=== PATIENT | male | born 1945 | race Caucasian/White ===

== ENCOUNTER 2017-10-08 12:39 | Inpatient (IN) | payer MEDICARE ==
[~2017-10-08] VITALS: Ht 172.7 cm; Wt 69.1 kg
[2017-10-08] MEDS ORDERED: SODIUM CHLORIDE FLUSH 10ML SYR IVF ONE (13:00)
[2017-10-08 13:15] LABS: HEMATOCRIT 51.2 % (39.2-51.8); HEMOGLOBIN 17.3 g/dL (13.7-18.0); WHITE BLOOD COUNT 10.2 x10^3/uL (3.4-10)
[2017-10-08] MEDS ORDERED: ASPIRIN 81 MG TABLET CHEW PO ONE (13:30)
[2017-10-08] MEDS ORDERED: PLEASE ENTER ALLERGIES MC SCH ×2 (13:30)
[2017-10-08 13:31] LABS: BLOOD UREA NITROGEN 30 mg/dL (7-18)
[2017-10-08] MEDS ORDERED: ASPIRIN 81 MG TABLET CHEW ONE (14:01)
[2017-10-08] MEDS ORDERED: LISINOPRIL PO (15:11)
[2017-10-08] MEDS ORDERED: SODIUM CHLORIDE 0.9% 1,000 ML IV SCH (15:47)
[2017-10-08] MEDS ORDERED: DOCUSATE CALCIUM 240 MG CAPSULE PO PRN (16:00)
[2017-10-08] MEDS ORDERED: ACETAMINOPHEN 650 MG/20.3 ML UDC PO PRN (16:00)
[2017-10-08] MEDS ORDERED: ENOXAPARIN 40 MG/0.4 ML ONE (16:15)
[2017-10-08 16:32] VITALS: BP 137/87
[2017-10-08] MEDS: ENOXAPARIN 40 MG/0.4 ML SQ SCH (17:05)
[2017-10-08 18:38] VITALS: BP 134/78
[2017-10-09 04:32] VITALS: BP 121/78
[2017-10-09 05:15] LABS: BLOOD UREA NITROGEN 24 mg/dL (7-18)
[2017-10-09 05:18] LABS: ASPARTATE AMINO TRANSFERASE 19 U/L (15-37)
[2017-10-09 05:20] LABS: HEMATOCRIT 44.3 % (39.2-51.8); WHITE BLOOD COUNT 9.9 x10^3/uL (3.4-10)
[2017-10-09 07:45] VITALS: BP 140/85
[2017-10-09] MEDS: OMEPRAZOLE 20 MG CAPSULE.DR PO SCH (08:00)
[2017-10-09] MEDS: ASPIRIN 325 MG TABLET PO SCH (09:00)
[2017-10-09 13:55] VITALS: BP 151/90
[2017-10-09] MEDS: ENOXAPARIN 40 MG/0.4 ML SQ SCH (20:57)
[2017-10-09] MEDS ORDERED: SIMVASTATIN 20 MG TABLET PO SCH ×2 (21:00)
[2017-10-09 21:02] VITALS: BP 124/84
[2017-10-10 03:35] VITALS: BP 140/83
[2017-10-10] MEDS: OMEPRAZOLE 20 MG CAPSULE.DR PO SCH (07:59)
[2017-10-10] MEDS: ASPIRIN 325 MG TABLET PO SCH (07:59)
[2017-10-10 08:05] VITALS: BP 141/91
[2017-10-10] MEDS ORDERED: ASPI325T17 PO (13:04)
[2017-10-10] MEDS ORDERED: SIMV20TA3 PO (13:04)
[2017-10-10 14:34] VITALS: BP 145/86
[2017-10-10] MEDS ORDERED: ASPI-515 PO (17:03)
[2017-10-10] MEDS ORDERED: CLOP75TA52 PO (17:04)
[2017-10-11] MEDS ORDERED: ASPIRIN 81 MG TABLET CHEW PO SCH (09:00)
[2017-10-11] MEDS ORDERED: CLOPIDOGREL 75 MG TABLET PO SCH (09:00)
== END 2017-10-10 18:26 | disposition home or self-care (01) | DRG 64 ==
LOC: ED 14:44 → EDIP 14:45 → 4WST 15:55
PROVIDERS: ADMIT Internal Medicine; ATTEND Family Medicine
DX: I63.412 Cerebral infarction due to embolism of left middle cerebral artery (principal); N17.0 Acute kidney failure with tubular necrosis; R47.01 Aphasia; I10 Essential (primary) hypertension; M10.9 Gout, unspecified; Q89.9 Congenital malformation, unspecified; Z79.82 Long term (current) use of aspirin; Z80.9 Family history of malignant neoplasm, unspecified; R47.1 Dysarthria and anarthria
CPT/HCPCS: 36415; 70450; 70544; 70547; 70551; 80047; 80048; 80053; 80061; 82040; 85025; 85610; 93005; 93306; 93880; 99285; J1650; 92523-GN; J7030